=== PATIENT | male | born 1950 | race Caucasian/White ===

== ENCOUNTER 2016-12-06 22:20 | Observation (INO) | payer OTHER ==
[~2016-12-06] VITALS: Ht 182.9 cm; Wt 144.0 kg
[2016-12-06 22:43] VITALS: BP 111/70; PULSE 83; RESP 20; TEMP 97.9; O2SAT 95
[2016-12-06] MEDS ORDERED: HYDROmorphone HCL PF 1 MG/ML VIAL SQ ONE (22:45)
--- NOTE | 2016-12-06 23:06 | PD ---
HPI Chief Complaint: Back/ Neck Pain or Injury Time Seen by Provider: 22:29 Travel History International Travel<30 days: No Contact w/Intl Traveler<30days: No Traveled to known affect area: No History of Present Illness HPI Patient 66-year-old male presents emergency department for evaluation of low back pain. Patient states his back has been hurting him on and off for the past week. Patient states she's had a history of back problems including degenerative disorders never had surgery before. States she's been to the [facility] several times this week, he was given a shot of something that made him feel better and his been taking Ultram at home per Dr. Barnett. Patient states today he went up to get to the bathroom and his back spasming on him and the pain was severe and has numbness tingling both toes. Denies any saddle anesthesia denies any difficulty urinating or any enuresis. Denies any fever denies any injury. No imaging studies have been obtained of his back. PFSH Past Medical History Diminished Hearing: No Hypertension: Yes Medical other: Yes (HEMORRHOIDS) Musculoskeletal: Yes (HX OF LUMBAR STRAIN) Tetanus Vaccination: Unknown Influenza Vaccination: Yes Past Surgical History Tonsillectomy: Yes Social History Alcohol Use: No Tobacco Use: No Substance Use: No Allergies-Medications (Allergen,Severity, Reaction): Coded Allergies: No Known Allergies (Unverified , 12/06/16) Reported Meds & Prescriptions Reported Meds & Active Scripts Active Percocet (Oxycodone-Acetaminophen) 10-325 mg Tab 1 Tab PO Q6H PRN Reported Multi For Him (Multiple Vitamins W/ Minerals) 1 Tab Tab 1 Mg PO Tramadol (Tramadol HCl) 50 Mg Tab 50 Mg PO Q4H PRN Naproxen 500 Mg Tab 500 Mg PO BID Lisinopril 40 Mg Tab 40 Mg PO DAILY Hydrochlorothiazide 25 Mg Tab 25 Mg PO DAILY Fish Oil ([place]-3 Fatty Acids) 1,000 Mg Cap 1,000 Mg PO DAILY Aspirin 81 (Aspirin) 81 Mg Tabdr 81 Mg PO DAILY Ketorolac Inj (Ketorolac Tromethamine) 60 Mg/2 Ml Inj 1,000 Mg PO DAILY Robaxin (Methocarbamol) 750 Mg Tab 750 Mg PO TID Review of Systems Except as stated in HPI: all other systems reviewed are Neg Physical Exam Narrative GENERAL: Well-nourished, well-developed patient. SKIN: Focused skin assessment warm/dry. HEAD: Normocephalic. EYES: No scleral icterus. No injection or drainage. NECK: Supple, trachea midline. No JVD or lymphadenopathy. CARDIOVASCULAR: Regular rate and rhythm without murmurs, gallops, or rubs. RESPIRATORY: Breath sounds equal bilaterally. No accessory muscle use. GASTROINTESTINAL: Abdomen soft, non-tender, nondistended. MUSCULOSKELETAL: No cyanosis, or edema. There is some minimal lumbar tenderness to the right of midline, no step-off. No palpable spasm. Patient's DTRs are 2+ bilaterally equal at patellar tendon and the Achilles tendon. 5 out of 5 strength in bilateral lower extremities. BACK: Nontender without obvious deformity. No CVA tenderness. Data Data Last Documented VS Vital Signs Date Time Temp Pulse Resp B/P Pulse Ox O2 Delivery O2 Flow Rate FiO2 12/07/16 01:49 60 20 111/58 99 12/06/16 22:[address] Lumb Spine W/O Contrast (12/06/16 ) Hydromorphone Pf Inj (Dilaudid Pf Inj) (12/06/16 22:45) Basic Metabolic Panel (Bmp) (12/07/16 02:27) Complete Blood Count With Diff (12/07/16 02:27) Iv Access Insert/Monitor (12/07/16 02:27) Ecg Monitoring (12/07/16 02:27) Oximetry (12/07/16 02:27) Sodium Chloride 0.9% Flush (Ns Flush) (12/07/16 02:30) Admit Order (Ed Use Only) (12/07/16 ) [facility] Medical Decision Making Medical Screen Exam Complete: Yes Emergency Medical Condition: Yes Differential Diagnosis Back pain, pathologic fracture, cauda equina is excluded clinically, degenerative disc disease. Narrative Course Patient was roomed in emergency department, was given half milligram of Dilaudid IM. Pain was completely relieved by this. CAT scan was obtained of his back which does shows chronic degenerative changes. Last [address] 12/06/16 0000 Signed Impressions: Service Date/Time: Tuesday, December 06, 2016 23:19 - CONCLUSION: 1. Grade 1 anterior spondylolisthesis of L5 on S1 of approximately 8 mm with annular disc bulge and bilateral foraminal stenosis. 2. Mild central canal stenosis at the L3-4 and L4-5 levels secondary to disc bulges and degenerative change involving the facets. 3. Degenerative disc changes with mild retrolisthesis of L3 on L4. Ricky Monteiro MD The patient does have significant anterior spondylosis listhesis of 8 mm. Given this felt it prudent to discuss the patient with Dr. Torre. He is reassuring that these are chronic changes. The patient has no symptoms of cauda equina syndrome. Although his pain was significantly relieved the patient was unable to bear weight secondary to pain. He therefore is not a safe discharge. The patient was discussed with Dr. Barnett his primary care physician is on for [facility] who will place in observation status. Diagnosis Primary Impression: Low back pain Qualified Code: M54.5 - Acute right-sided low back pain without sciatica Referrals: Rick Torre MD Med/Other Pt SpecificInfo: Prescription(s) given Scripts Oxycodone-Acetaminophen (Percocet)10-325 mg Tab1 Tab PO Q6H PRN (PAIN) #12 TAB Ref 0 Prov:Amaury Betancur MD 12/07/16 Disposition: 01 DISCHARGE HOME Condition: Stable Amaury Betancur MD Dec 06, 2016 23:06
[2016-12-06] MEDS ORDERED: LISI40TA PO (23:16)
[2016-12-06] MEDS ORDERED: NAPR500T PO (23:16)
[2016-12-06] MEDS ORDERED: ROBA750T PO (23:16)
[2016-12-06] MEDS ORDERED: TRAM50TA PO (23:16)
[2016-12-06] MEDS ORDERED: FISH1000 PO (23:16)
[2016-12-06] MEDS ORDERED: [UNRECOGNIZED DRUG - CODE] PO (23:16)
[2016-12-06] MEDS ORDERED: HYDR25TA5 PO (23:16)
[2016-12-06] MEDS ORDERED: ASPI-110 PO (23:16)
[2016-12-06] MEDS ORDERED: MULTTAB22 PO (23:16)
[2016-12-07] VITALS (8 sets, daily range): BP systolic 111–162; BP diastolic 56–95; PULSE 60–96; RESP 15–20; TEMP 96.6–97.8; O2SAT 93–99
--- NOTE | 2016-12-07 00:24 | RADHPO ---
EXAM DATE/TIME: 12/06/2016 23:19 [place] COMPARISON: No previous studies available for comparison. INDICATIONS : Low back pain. RADIATION DOSE: 57.07 CTDIvol (mGy) MEDICAL HISTORY : None SURGICAL HISTORY : None. ENCOUNTER: Initial ACUITY: 1 day PAIN SCALE: 7/10 LOCATION: lumbar TECHNIQUE: Volumetric scanning of the lumbar spine was performed. Multiplanar reconstructions in the sagittal, coronal and oblique axial planes were performed. Using automated exposure control and adjustment of the mA and/or kV according to patient size, radiation dose was kept as low as reasonably achievable t o obtain optimal diagnostic quality images. FINDINGS: VERTEBRAE: Normal vertebral body height. There is a mild scoliosis. ALIGNMENT: There is a grade 1 anterior spondylolisthesis of L5 on S1 of approximately 8 mm. There are bilat eral pars defects. There is mild retrolisthesis of L3 on L4 of approximately 4 mm. DISCS: Degenerative disc changes are present with disc space narrowing and mild hypertrophic change. Th ere are vacuum disc phenomena at the L3-4 and L5-S1 levels.T12-L1: The thecal sac has a normal diameter. No evidence of disc bulge or protrusion. The neural foramina are patent bilaterally. L1-L2: There is a mild annular disc bulge with mild flattening of anterior thecal sac and no focal protrusio n. The neural foramina are patent bilaterally. L2-L3: There is a mild annular disc bulge with mild flattening of the anterior thecal sac and no focal protr usion. The neural foramina are patent bilaterally. L3-L4: There is a moderate disc bulge with flattening of the anterior thecal sac and narrowing of the neural foramina. There is degenerative change involving the facet joints and there is evidence of mild cent ral canal stenosis.. L4-L5: There is a mild to moderate disc bulge with flattening of the anterior thecal sac and mild narrowing of the neural foramina. There are degenerative changes involving the facet joints with mild central c anal stenosis. L5-S1: Grade 1 anterior spondylolisthesis is again noted with bilateral pars defects. There is a disc bulge with flattening of the anterior thecal sac and narrowing of the neural foramina with bilateral forami nal stenosis. CONCLUSION: 1. Grade 1 anterior spondylolisthesis of L5 on S1 of approximately 8 mm with annular disc bulge and b ilateral foraminal stenosis. 2. Mild central canal stenosis at the L3-4 and L4-5 levels secondary to disc bulges and degenerative change involving the facets. 3. Degenerative disc changes with mild retrolisthesis of L3 on L4. Ricky Monteiro MD on December 07, 2016 at 0:15 Board Certified Radiologist. This report was verified electronically.
[2016-12-07] MEDS ORDERED: PERC10TA27 PO (01:24)
[2016-12-07] MEDS ORDERED: SODIUM CHLORIDE 0.9% FLUSH 10 ML FLUSH IV FLUSH PRN (02:30)
[2016-12-07] MEDS ORDERED: oxyCODONE/ACETAMINOPHEN 5 MG/325 MG TAB PO PRN (02:45)
[2016-12-07] MEDS ORDERED: ONDANSETRON HCL 4 MG/2 ML VIAL IV PUSH PRN (02:45)
[2016-12-07] MEDS ORDERED: methylPREDNISolone SOD SUCC 40 MG/1 ML VIAL IV PUSH ONE ×2 (02:45→17:00)
[2016-12-07] MEDS ORDERED: MORPHINE SULFATE 4 MG/ML INJ IV PUSH PRN (02:45)
[2016-12-07 02:50] LABS: AUTOMATED NEUTROPHIL # 4.9 TH/MM3 (1.8-7.7); BASOPHIL # 0.2 TH/MM3 (0-0.2); BASOPHIL % 3.1 % (0.0-2.0); EOSINOPHIL # 0.4 TH/MM3 (0-0.4); EOSINOPHIL % 4.9 % (0.0-4.0); HEMATOCRIT 41.6 % (39.0-51.0); HEMO FLAGS DIFF FINAL; LYMPH % 21.5 % (9.0-44.0); LYMPHOCYTE # 1.7 TH/MM3 (1.0-4.8); MEAN CELL VOLUME 97.2 FL (80.0-100.0); MEAN CORPUSCULAR HEMOGLOBIN 32.7 PG (27.0-34.0); MEAN CORPUSCULAR HGB CONC 33.7 % (32.0-36.0); MONO % 8.4 % (0.0-8.0); NEUT % 62.1 % (16.0-70.0); PLATELET COUNT 180 TH/MM3 (150-450); RED BLOOD COUNT 4.28 MIL/MM3 (4.50-5.90); RED CELL DISTRIBUTION WIDTH 12.2 % (11.6-17.2); WHITE BLOOD COUNT 7.9 TH/MM3 (4.0-11.0)
[2016-12-07 02:56] LABS: POTASSIUM 4.4 MEQ/L (3.5-5.1)
[2016-12-07 02:59] LABS: BICARBONATE 26.7 MEQ/L (21.0-32.0)
[2016-12-07] MEDS ORDERED: SODIUM CHLORID 0.9% 500 ML INJ 500 ML IV SCH (05:15)
--- NOTE | 2016-12-07 08:38 | HHI.HP ---
HPI Service [facility] Hospitalists Primary Care Physician Unknown Admission Diagnosis Intractible back pain, inability to ambulate. Chief Complaint: low back pain, inability to walk Travel History International Travel<30 Days: No Contact w/Intl Traveler <30 Da: No Traveled to Known Affected Are: No History of Present Illness Patient 66-year-old obese male with history of lumbar strain and lumbar generative disc disease who presents to the emergency department for evaluation of low back pain. Patient states his back has been hurting him on and off for the past week. Patient states she's had a history of back problems including degenerative disorders never had surgery before. States he has been to the [facility] extended hours clinic earlier on the day of admission was given Toradol injection and prescription for Robaxin. He has been taking Ultram at home per Dr. Barnett. Patient states today he went up to get to the bathroom and his back started spasming on him and the pain was severe and has numbness tingling in some of his toes. Also noted some pain radiating down the back of both legs. Denies any saddle anesthesia denies any difficulty urinating or any enuresis. Denies any fever denies any injury. No imaging studies have been obtained of his back previously. He was given pain medication in the ER and felt better but when he patrick from a supine position to stand and pain started again any again had spasm in his lower back. On exam this morning he is feeling better but again notes some pain in the lower back if he turns or twists a certain way. CT of lumbar spine demonstrates several areas of degenerative disc with some mild anterior listhesis and retrolisthesis. Review of Systems Constitutional: DENIES: Diaphoretic episodes, Fatigue, Fever, Weight gain, Weight loss, Chills, Dizziness, Change in appetite, Night Sweats Endocrine: DENIES: Heat/cold intolerance, Polydipsia, Polyuria, Polyphagia Eyes: DENIES: Blurred vision, Diplopia, Eye inflammation, Eye pain, Vision loss , Photosensitivity, Double Vision Ears, nose, mouth, throat: DENIES: Tinnitus, Hearing loss, Vertigo, Nasal discharge, Oral lesions, Throat pain, Hoarseness, Ear Pain, Running Nose, Epistaxis, Sinus Pain, Toothache, Odynophagia Respiratory: DENIES: Apneas, Cough, Snoring, Wheezing, Hemoptysis, Sputum production, Shortness of breath Cardiovascular: DENIES: Chest pain, Palpitations, Syncope, Dyspnea on Exertion , PND, Lower Extremity Edema, Orthopnea, Claudication Gastrointestinal: DENIES: Abdominal pain, Black stools, Bloody stools, BRB per rectum, Constipation, Diarrhea, GERD, Nausea, Reflux, Vomiting, Difficulty Swallowing, Anorexia, See HPI Musculoskeletal: COMPLAINS OF: Joint pain, Back pain Integumentary: DENIES: Abnormal pigmentation, Nail changes, Pruritus, Rash Hematologic/lymphatic: DENIES: Bruising, Lymphadenopathy Immunologic/allergic: DENIES: Eczema, Urticaria Neurologic: COMPLAINS OF: Abnormal gait, DENIES: Headache, Localized weakness , Paresthesias, Seizures, Speech Problems, Tremor, Poor Balance Psychiatric: DENIES: Anxiety, Confusion, Mood changes, Depression, Hallucinations, Agitation, Suicidal Ideation, Homicidal Ideation, Delusions, History of Bipolar, History of Schizophrenia Past Family Social History Past Medical History Morbid obesity Impaired fasting glucose Lumbar degenerative disc disease Hypertension Hyperlipidemia Past Surgical History Tonsillectomy Prior colonoscopy Reported Medications Multi For Him (Multiple Vitamins W/ Minerals) 1 Tab Tab 1 Mg PO Tramadol (Tramadol HCl) 50 Mg Tab 50 Mg PO Q4H PRN Naproxen 500 Mg Tab 500 Mg PO BID Lisinopril 40 Mg Tab 40 Mg PO DAILY Hydrochlorothiazide 25 Mg Tab 25 Mg PO DAILY Fish Oil ([place]-3 Fatty Acids) 1,000 Mg Cap 1,000 Mg PO DAILY Aspirin 81 (Aspirin) 81 Mg Tabdr 81 Mg PO DAILY Robaxin (Methocarbamol) 750 Mg Tab 750 Mg PO TID Allergies: Coded Allergies: No Known Allergies (Unverified , 12/06/16) Family History Father age 75 from an [place]; father also had hypertension and lung cancer Social History He has never been a smoker Rarely uses any alcohol Chest work at the [employer] a couple times a week, stationary bike He is currently and works as a liability claims representative for the [employer] Apparently has 10% disability associated Physical Exam Vital Signs Vital Signs Date Time Temp Pulse Resp B/P Pulse Ox O2 Delivery O2 Flow Rate FiO2 12/07/16 04:10 96.8 67 20 138/73 93 12/07/16 03:08 81 20 138/84 98 12/07/16 03:08 81 20 138/84 98 12/07/16 01:49 60 20 111/58 99 12/07/16 00:43 60 20 121/56 98 12/06/16 22:43 97.9 83 20 111/70 95 12/06/16 22:41 20 Physical Exam GENERAL: This is a well-nourished, morbidly obese, well-developed patient, in no apparent distress. Alert and oriented. SKIN: No rashes, ecchymoses or lesions. Cool and dry. HEAD: Atraumatic. Normocephalic. No temporal or scalp tenderness. EYES: Pupils equal round and reactive. Extraocular motions intact. No scleral icterus. No injection or drainage. ENT: Nose without bleeding, purulent drainage or septal hematoma. Airway patent. NECK: Trachea midline. No JVD or lymphadenopathy. Supple, nontender, no meningeal signs. CARDIOVASCULAR: Regular rate and rhythm without murmurs, gallops, or rubs. RESPIRATORY: Clear to auscultation. Breath sounds equal bilaterally. No wheezes , rales, or rhonchi. GASTROINTESTINAL: Abdomen soft, non-tender, nondistended. No hepato-splenomegaly , or palpable masses. No guarding. MUSCULOSKELETAL: Extremities without clubbing, cyanosis, or edema. No joint tenderness, effusion, or edema noted. No calf tenderness. Mild tenderness to palpation over bilateral SI joints. No central tenderness to palpation of lower back. Positive straight leg test on the left which produced pain in his right lower back. DTRs 2+ at both knees. NEUROLOGICAL: Awake and alert. Cranial nerves II through XII intact. Motor and sensory grossly within normal limits. Five out of 5 muscle strength in all muscle groups. Normal speech. Laboratory Laboratory Tests Test 12/07/16 02:44 White Blood Count 7.9 Red Blood Count 4.28 Hemoglobin 14.0 Hematocrit 41.6 Mean Corpuscular Volume 97.2 Mean Corpuscular Hemoglobin 32.7 Mean Corpuscular Hemoglobin 33.7 Concent Red Cell Distribution Width 12.2 Platelet Count 180 Mean Platelet Volume 8.4 Neutrophils (%) (Auto) 62.1 Lymphocytes (%) (Auto) 21.5 Monocytes (%) (Auto) 8.4 Eosinophils (%) (Auto) 4.9 Basophils (%) (Auto) 3.1 Neutrophils # (Auto) 4.9 Lymphocytes # (Auto) 1.7 Monocytes # (Auto) 0.7 Eosinophils # (Auto) 0.4 Basophils # (Auto) 0.2 CBC Comment DIFF FINAL Differential Comment Sodium Level 139 Potassium Level 4.4 Chloride Level 105 Carbon Dioxide Level 26.7 Anion Gap 7 Blood Urea Nitrogen 22 Creatinine 1.40 Estimat Glomerular Filtration 51 Rate Random Glucose 100 Calcium Level 8.3 Result Diagram: 12/07/16 0244 12/07/16 0244 Imaging Last 72 hours Impressions Lumbar Spine CT 12/06/16 0000 Signed Impressions: Service Date/Time: Tuesday, December 06, 2016 23:19 - CONCLUSION: 1. Grade 1 anterior spondylolisthesis of L5 on S1 of approximately 8 mm with annular disc bulge and bilateral foraminal stenosis. 2. Mild central canal stenosis at the L3-4 and L4-5 levels secondary to disc bulges and degenerative change involving the facets. 3. Degenerative disc changes with mild retrolisthesis of L3 on L4. Ricky Monteiro MD Assessment and Plan Problem List: (1) Lumbar radiculopathy Status: Acute Plan: CT scan noted. We'll check MRI. Have physical therapy see the patient. Solu-Medrol seems to have helped a bit. Continue pain medication. Hopefully discharge home or to rehabilitation center later today. May need surgical intervention for his pain management in the future. ER physician reported to me that he discussed the case with the neurosurgeon promotions assistant last night but no surgical intervention was indicated per his report. (2) Lumbar degenerative disc disease Status: Chronic Plan: As noted above. (3) Morbid obesity Status: Chronic Plan: Advised weight loss. We have discussed this multiple times an outpatient. (4) Hyperlipidemia Status: Chronic Plan: LDL was 99 in May 2016. This has been relatively well controlled off statins. Continue to follow as an outpatient. (5) Hypertension Status: Chronic Plan: Stable relatively well controlled. Continue therapy. Assessment and Plan Hopefully discharge to rehabilitation or home later today. Code Status Full Discussed Condition With Patient in emergency medicine physician. Tim Barnett MD PhD Dec 07, 2016 08:38
[2016-12-07] MEDS ORDERED: OXYC1TAB63 PO (08:40)
[2016-12-07 10:16] LABS: POTASSIUM 4.8 MEQ/L (3.5-5.1)
[2016-12-07 10:19] LABS: BICARBONATE 26.8 MEQ/L (21.0-32.0)
[2016-12-07] MEDS ORDERED: LORazepam 2 MG/ML VIAL IV ONE (16:00)
[2016-12-07] MEDS ORDERED: CYCLOBENZAPRINE HCL 10 MG TAB PO PRN (16:30)
--- NOTE | 2016-12-07 16:35 | HHI.PR ---
Addendum to Inpatient Note Addendum Reason: Additional Documentation Additional Information Pt unable to fit in MRI in PO. No transport available to main campus now. Pt is improving as far as symptoms. Will give another dose of solumedrol and try flexeril. Will re-evaluate in AM to determine if he can go home vs trying to get MRI. I spoke with pt and nurse, Crystal re: this plan. Tim Barnett MD PhD Dec 07, 2016 16:35
[2016-12-07] MEDS ORDERED: LORazepam 2 MG/ML VIAL IV PRN (17:00)
[2016-12-08 00:19] VITALS: BP 137/73; PULSE 80; RESP 14; TEMP 97.6; O2SAT 96
[2016-12-08 07:59] VITALS: BP 137/91; PULSE 91; RESP 21; TEMP 96.4; O2SAT 94
--- NOTE | 2016-12-08 08:08 | HHI.PR ---
Subjective Remarks Doing better this morning. The 2 doses of steroids seems to have helped the most. He is ambulating in the room with a walker for assistance. He is able to rise from a seated or lying position without much pain today. No loss of bowel or bladder function or saddle anesthesia. Was unable to get MRI yesterday as he is too large for the machine here. We'll cancel MRI and obtain an outpatient. Objective Vitals GENERAL: Obese male sitting on the side of the bed in no apparent distress. Alert and oriented. Cooperative. Appears much more comfortable than yesterday. SKIN: Warm and dry. HEAD: Normocephalic. EYES: No scleral icterus. No injection or drainage. NECK: Supple, trachea midline. No JVD or lymphadenopathy. CARDIOVASCULAR: Regular rate and rhythm without murmurs, gallops, or rubs. RESPIRATORY: Breath sounds equal bilaterally. No accessory muscle use. GASTROINTESTINAL: Abdomen soft, non-tender, nondistended. Bowel sounds normal. MUSCULOSKELETAL: No cyanosis, or edema. Slight tenderness over bilateral SI joints. DTRs 2+ at patellar tendons bilaterally. Positive straight leg test on the left. BACK: No CVA tenderness. Vital Signs Date Time Temp Pulse Resp B/P Pulse Ox O2 Delivery O2 Flow Rate FiO2 12/08/16 07:59 96.4 91 21 137/91 94 12/08/16 00:19 97.6 80 14 137/73 96 12/07/16 20:10 96.7 91 16 128/78 94 12/07/16 17:01 97.8 96 15 162/88 97 12/07/16 12:31 97.6 90 15 154/87 97 12/07/16 09:15 96.6 86 18 161/95 97 12/07/16 12/07/16 12/08/16 15:00 23:00 07:00 Intake Total 500 ml 0 ml Output Total 300 ml Balance 500 ml -300 ml Intake IV Total 500 ml 0 ml Output Urine Total 300 ml # Voids 1 Result Diagram: 12/07/16 0244 12/07/16 0930 Imaging Last 72 hours Impressions Lumbar Spine CT 12/06/16 0000 Signed Impressions: Service Date/Time: Tuesday, December 06, 2016 23:19 - CONCLUSION: 1. Grade 1 anterior spondylolisthesis of L5 on S1 of approximately 8 mm with annular disc bulge and bilateral foraminal stenosis. 2. Mild central canal stenosis at the L3-4 and L4-5 levels secondary to disc bulges and degenerative change involving the facets. 3. Degenerative disc changes with mild retrolisthesis of L3 on L4. Ricky Monteiro MD Urinary Catheter: No Vascular Central Line Catheter: No A/P Problem List: (1) Lumbar radiculopathy Status: Acute Plan: CT scan noted. ER physician reported to me that he discussed the case with the neurosurgeon admissions dean on day of admission but no surgical intervention was indicated per his report. Patient is doing better today. Could not obtain MRI as he is too large for the machine here. Will cancel MR here in order as an outpatient. We use walker at home. Off work 1 week. (2) Lumbar degenerative disc disease Status: Chronic Plan: As noted above. (3) Morbid obesity Status: Chronic Plan: Advised weight loss. We have discussed this multiple times an outpatient. (4) Hyperlipidemia Status: Chronic Plan: LDL was 99 in May 2016. This has been relatively well controlled off statins. Continue to follow as an outpatient. (5) Hypertension Status: Chronic Plan: Stable relatively well controlled. Continue therapy. Discharge Planning Discharge home today. Tim Barnett MD PhD Dec 08, 2016 08:08
[2016-12-08] MEDS ORDERED: CYCL1TAB29 PO (08:10)
[2016-12-08] MEDS ORDERED: PRED20 PO (08:10)
[2016-12-08] MEDS ORDERED: WALKER WHEELS/F1 MIS (08:13)
--- NOTE | 2016-12-08 08:15 | HHI.DS ---
Discharge Summary Admission Date Dec 07, 2016 at 02:29 Discharge Date: Dec 08, 2016 Admitting Diagnosis Intractible back pain, inability to ambulate. (1) Lumbar radiculopathy Diagnosis: Principal (2) Lumbar degenerative disc disease Diagnosis: Principal (3) Morbid obesity Diagnosis: Secondary (4) Hyperlipidemia Diagnosis: Secondary (5) Hypertension Diagnosis: Secondary Brief History Patient 66-year-old obese male with history of lumbar strain and lumbar generative disc disease who presents to the emergency department for evaluation of low back pain. Patient states his back has been hurting him on and off for the past week. Patient states she's had a history of back problems including degenerative disorders never had surgery before. States he has been to the [facility] extended hours clinic earlier on the day of admission was given Toradol injection and prescription for Robaxin. He has been taking Ultram at home per Dr. Barnett. Patient states today he went up to get to the bathroom and his back started spasming on him and the pain was severe and has numbness tingling in some of his toes. Also noted some pain radiating down the back of both legs. Denies any saddle anesthesia denies any difficulty urinating or any enuresis. Denies any fever denies any injury. No imaging studies have been obtained of his back previously. He was given pain medication in the ER and felt better but when he patrick from a supine position to stand and pain started again any again had spasm in his lower back. On exam this morning he is feeling better but again notes some pain in the lower back if he turns or twists a certain way. CT of lumbar spine demonstrates several areas of degenerative disc with some mild anterior listhesis and retrolisthesis. CBC/BMP: 12/07/16 0244 12/07/16 0930 Significant Findings Laboratory Tests Test 12/07/16 12/07/16 02:44 09:30 Red Blood Count 4.28 MIL/MM3 (4.50-5.90) Monocytes (%) (Auto) 8.4 % (0.0-8.0) Eosinophils (%) (Auto) 4.9 % (0.0-4.0) Basophils (%) (Auto) 3.1 % (0.0-2.0) Blood Urea Nitrogen 22 MG/DL (7-18) 20 MG/DL (7-18) Creatinine 1.40 MG/DL (0.60-1.30) Estimat Glomerular Filtration 51 ML/MIN (>89) 56 ML/MIN (>89) Rate Calcium Level 8.3 MG/DL (8.5-10.1) Random Glucose 137 MG/DL (74-106) Hospital Course Patient presented as noted above with lumbar degenerative changes and radicular symptoms. He was unable to ambulate due to the pain. He was given pain medications and steroids and muscle relaxants. He gradually improved. MRI was ordered as an inpatient but he was too large for the machine at this facility. Given that he is much improved will ascertain need for MRI later this week as an outpatient. Pt Condition on Discharge: Fair Discharge Disposition: Discharge Home Discharge Instructions DIET: Follow Instructions for: Heart Healthy Diet Activities you can perform: Weight Bearing as Marvin Other Activity Instructions: Use walker or other assistive device initially. Advance activity as tolerated. Follow up Referrals: PCP Follow-up New Medications: Prednisone (Prednisone) 20 Mg Tab 20 MG PO DAILY lumbago #3 Ref 0 TAB Walker with Front Wheels (Walker with Front Wheels) 1 Mis Mis 1 EA .ROUTE DIRECTED lumbar radiculopathy #1 Ref 0 EA Cyclobenzaprine (Flexeril) 10 Mg Tab 10 MG PO Q8H PRN muscle spasm #30 TAB Oxycodone-Acetaminophen (Oxycodone-Acetaminophen) 5-325 mg Tab 1 TAB PO Q4H PRN pain level 3-10 #20 TAB Continued Medications: Aspirin DR (Aspirin 81) 81 Mg Tabdr 81 MG PO DAILY Ref 0 TAB Hydrochlorothiazide (Hydrochlorothiazide) 25 Mg Tab 25 MG PO DAILY #30 Ref 0 TAB Lisinopril (Lisinopril) 40 Mg Tab 40 MG PO DAILY Blood Pressure Management #30 Ref 0 TAB Multiple Vitamins W/ Minerals (Multi For Him) 1 Tab Tab 1 MG PO [facility]-3 Fatty Acids (Fish Oil) 1,000 Mg Cap 1000 MG PO DAILY Tramadol (Tramadol) 50 Mg Tab 50 MG PO Q4H PRN PAIN Ref 0 TAB Discontinued Medications: Methocarbamol (Robaxin) 750 Mg Tab 750 MG PO TID Muscle Spasm Ref 0 TAB Additional Information Take off work this week. Tim Barnett MD PhD Dec 08, 2016 08:15
== END 2016-12-08 11:39 | disposition home or self-care (01) ==
LOC: PHED 22:20 → PHEDA 12-07 02:29 → PH3B 12-07 03:10
PROVIDERS: ADMIT Family Medicine; ATTEND Family Medicine
DX: M51.16 Intervertebral disc disorders with radiculopathy, lumbar region (principal); I10 Essential (primary) hypertension; E78.5 Hyperlipidemia, unspecified; E66.01 Morbid (severe) obesity due to excess calories; Z68.41 Body mass index [BMI] 40.0-44.9, adult; Z79.82 Long term (current) use of aspirin
CPT/HCPCS: 72131; 80048; 85025; 96372; 96374; 96375; 96376; 97162; 99285; G0378; G8987; G8988; J1170; J2270; J2920; J7040